=== PATIENT | female | born 1960 | race Caucasian/White ===

== ENCOUNTER 2019-07-11 04:25 | Observation (INO) | payer MEDICAID, SELFPAY ==
[2019-07-11] VITALS (8 sets, daily range): BP systolic 108–157; BP diastolic 55–88; PULSE 54–85; RESP 16–18; TEMP 36.4–36.6; O2SAT 96–98; BMI 38.1; BMI 37.1; BMI 37.2
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
--- NOTE | 2019-07-11 04:56 | EKG12_ITS ---
Test Reason : ALT LOC Blood Pressure : / mmHG Vent. Rate : 093 BPM Atrial Rate : 093 BPM P-R Int : 176 ms QRS Dur : 084 ms QT Int : 366 ms P-R-T Axes : 039 -14 057 degrees QTc Int : 455 ms Normal sinus rhythm Left ventricular hypertrophy with repolarization abnormality Abnormal ECG Confirmed by DONAVON BENOIT, YANIV ([id number]), order editor VAISHNAVI SRIVASTAVA ([id number]) on 07/13/2019 9:28:55 AM Referred By: CLARISSA Confirmed By:YANIV RAPHAEL MD
--- NOTE | 2019-07-11 05:00 | RAD_ITS ---
STUDY: X-RAY CHEST REASON FOR EXAM: Female, 58 years old. ALTERED LOC, MENTAL HEALTH, CONFUSION TECHNIQUE: Single AP portable view of the chest. COMPARISON: None. FINDINGS: The lungs are clear and expanded. There is no demonstrated pleural abnormality. Normal size heart. Normal mediastinum and devi. Normal visualized pulmonary arteries. There is atherosclerotic tortuosity of the aortic arch and descending thoracic aorta. Normal visualized thoracic spine. Normal visualized ribs, clavicles, and shoulders. There is a hiatal hernia measures 9 cm. RAD/Chest 1 View (Portable) IMPRESSION: Degenerative changes, as described above. No demonstrated acute cardiopulmonary process. There is a hiatal hernia measures 9 cm. Electronically Signed: Pavel Julian, at 6:06 EST Tel , Service support ,
[2019-07-11 05:42] LABS: Absolute Lymphocyte Count 1.09 X10^3/uL (0.83-4.51); Absolute Neutrophil Count 7.8 X10^3/uL (2.0-7.7); Basophil# 0.05 X10^3/uL; Basophil% 0.5 % (0-1); Eosinophil# 0.02 X10^3/uL; Eosinophils% 0.2 % (0-5); Hematocrit 44.1 % (37-47); Hemoglobin 13.9 g/dL (12.0-15.0); Lymphocyte # 1.09 X10^3/ul (4.0); Lymphocyte % 11.1 % (19-41); Mean Corp Hgb Conc 31.5 g/dL (32-36); Mean Corpuscular Hgb 26.4 pg (27.0-32.0); Mean Corpuscular Volume 83.8 fL (81-99); Mean Platelet Vol. 9.7 fl (6.2-12.0); Monocyte# 0.85 X10^3/uL; Monocyte% 8.7 % (0-10); NRBC Flagged by Analyzer 0 % (0-5); Neutrophil # 7.77 X10^3/uL (2.7-7.7); Neutrophil % 79.3 % (47-70); Platelet Count 303 K/mm3 (150-450); RBC Distribution Width CV 13.3 % (11.6-14.6); RBC Distribution Width SD 40.9 fl (35.1-43.9); Red Blood Count 5.26 M/mm3 (4.2-5.4); White Blood Count 9.8 K/mm3 (4.4-11.0)
[2019-07-11 06:01] LABS: AST(SGOT) 24 U/L (15-37); Alanine Aminotransfer ALT/SGPT 27 U/L (13-56); Albumin, Serum 3.9 g/dL (3.2-5.0); Alkaline Phosphatase 101 U/L (45-117); Anion Gap 8 (5-15); BUN 14 mg/dL (7-18); BUN/Creat Ratio 15.3 RATIO (10-20); Calcium,Total 9.4 mg/dL (8.5-10.1); Chloride 105 mmol/L (98-107); Creatinine, Serum 0.92 mg/dL (0.55-1.02); EST Glomerular Filtration Rate 66 mL/min (>60); Est Glom Filt Rate - Afr Amer 80 mL/min (>60); Estimated Creatinine Clearance 56.15 ml/min; Globulin 3.9 g/dL (2.2-4.2); Glucose 132 mg/dL (74-106); Potassium 3.4 mmol/L (3.5-5.1); Protein, Total 7.8 g/dL (6.4-8.2); Sodium Level 140 mmol/L (136-145)
[2019-07-11 06:10] LABS: Alcohol, Blood (Medical)-Serum < 3.0 mg/dL
[2019-07-11 06:20] LABS: Color, Urine Yellow (Yellow); Glucose, Dipstick Normal (Normal); Ketone-Dipstick 15 mg/dl (Negative); Leukocyte Esterase-Dipstick 500 /ul (Negative); Nitrite-Dipstick Negative (Negative); Occult Blood-Urine 10 /ul (Negative); Protein-Dipstick 30 mg/dl (Negative); Urine Bilirubin Dipstick Negative (Negative); Urine Clarity Sl. Cloudy (Clear); Urine Urobilinogen 1 mg/dl (Normal)
[2019-07-11 06:28] LABS: Bacteria 1+ /hpf (None Seen); Hyaline Cast 0-5 SEEN /lpf (0-5); Mucous, Urine 2+ /hpf (<or=2+); Red Blood Cells-Urine 0-5 SEEN /hpf (0-5); Squamous Epithelial Cells - UA 0-5 SEEN /hpf (5-10); White Blood Cells 10-25 SEEN /hpf (0-5)
--- NOTE | 2019-07-11 06:36 | ED.RN ---
april emergency contact. [facility] attempted to contact him at and left message in the middle of the night [phone] enoc carlos
[2019-07-11] MEDS: Ibuprofen 200 MG Tablet 400 MG PO (07:06)
[2019-07-11] MEDS: Ceftriaxone 1 GM/50 ML BAG IV (07:07)
[2019-07-11 07:09] LABS: Amphetamine Urine VISTA NEGATIVE (<1000 ng/mL); Barbiturate Urine VISTA NEGATIVE (< 200 ng/mL); Benzodiazepine Urine VISTA NEGATIVE (< 200 ng/mL); Cocaine Urine VISTA NEGATIVE (< 300 ng/mL); Ecstacy Urine VISTA NEGATIVE (< 500 ng/mL); Methadone Urine VISTA NEGATIVE (< 300 ng/mL); PCP Urine VISTA NEGATIVE (< 25 ng/mL); THC Urine VISTA NEGATIVE (< 50 ng/mL); Vista UDS pH Range 5
[2019-07-11] MEDS: Haloperidol Lactate 5 MG/ML Vial IM (09:25)
[2019-07-11 09:29] LABS: Ammonia < 10.0 umol/L (11-32)
--- NOTE | 2019-07-11 10:18 | NURSING ---
Unable to do complete assessment as pt was not fully cooperative upon arrival to unit and fell asleep shortly after. Her purse, shirt and shoes were not placed in pts room per suggestion from Willy, ER nurse, and agreement from this nurse since, pt is very fast at getting them on and pt had to be sedated in ER d/t her aggitation and attempting to leave. This nurse remains in room for 1:1 care for pt safety.
[2019-07-11] MEDS: cycloBENZAPRine HCl 10 MG Tablet 5 MG PO (12:21)
--- NOTE | 2019-07-11 12:23 | NURSING ---
Woke w/leg cramps. Declined flexeril at first but after ambulating did not help she agreed to take it. Also provided w/mack blaine and saltines per pt request.
--- NOTE | 2019-07-11 12:43 | NURSING ---
Pt sitting in recliner drinking mack blaine and crunching on ice.
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
--- NOTE | 2019-07-11 18:02 | NURSING ---
this nurse remains in the room with pt
[2019-07-12 04:55] VITALS: BP 119/73; PULSE 72; RESP 16; TEMP 36.6; O2SAT 97
[2019-07-12 05:38] LABS: Absolute Lymphocyte Count 1.67 X10^3/uL (0.83-4.51); Absolute Neutrophil Count 2.2 X10^3/uL (2.0-7.7); Basophil# 0.03 X10^3/uL; Basophil% 0.7 % (0-1); Eosinophil# 0.08 X10^3/uL; Eosinophils% 1.8 % (0-5); Hemoglobin 12.4 g/dL (12.0-15.0); Lymphocyte # 1.67 X10^3/ul (4.0); Lymphocyte % 37.2 % (19-41); Mean Corpuscular Hgb 26.2 pg (27.0-32.0); Mean Corpuscular Volume 84.4 fL (81-99); Mean Platelet Vol. 9.7 fl (6.2-12.0); Monocyte# 0.55 X10^3/uL; Monocyte% 12.2 % (0-10); NRBC Flagged by Analyzer 0 % (0-5); Neutrophil # 2.15 X10^3/uL (2.7-7.7); Neutrophil % 47.9 % (47-70); Platelet Count 239 K/mm3 (150-450); RBC Distribution Width CV 13.7 % (11.6-14.6); RBC Distribution Width SD 42.3 fl (35.1-43.9); Red Blood Count 4.74 M/mm3 (4.2-5.4); White Blood Count 4.5 K/mm3 (4.4-11.0)
[2019-07-12 05:59] LABS: Anion Gap 4 (5-15); BUN 8 mg/dL (7-18); BUN/Creat Ratio 11.2 RATIO (10-20); Calcium,Total 8.8 mg/dL (8.5-10.1); Chloride 109 mmol/L (98-107); Creatinine, Serum 0.72 mg/dL (0.55-1.02); EST Glomerular Filtration Rate 88 mL/min (>60); Est Glom Filt Rate - Afr Amer 107 mL/min (>60); Estimated Creatinine Clearance 71.75 ml/min; Glucose 87 mg/dL (74-106); Potassium 3.8 mmol/L (3.5-5.1); Sodium Level 142 mmol/L (136-145)
[2019-07-12 10:01] VITALS: BP 138/82; PULSE 74; RESP 14; TEMP 36.5; O2SAT 97
[2019-07-12] MEDS: Ceftriaxone 1 GM/50 ML BAG IV (10:37)
--- NOTE | 2019-07-12 11:20 | DCINST_ITS ---
- Discharge Diagnoses Current Active Problems: Current Active and Chronic Problems Delirium (Acute) Cystitis (Acute) You will use the following diet at home:: Regular Your food should be the consistency of: Regular Discharge Activity: Return to Normal Activity, May Not Drive - for 2-3 days for confusion Call your doctor if you observe: Fever of 101 or Higher, Change in Color, Inability to have a bowel movement, Using more than one pad per hour, Shortness of breath, Dizziness, Fainting spells, Swelling in the ankles, Chest pain, Prolonged hiccoughing, Increased palpitations (irregular heartbeat) Allergies/Adverse Reactions: Allergies Iodinated Contrast Media [CONTRASTS] Allergy (Verified 07/11/19 04:27) Unknown seafood Allergy (Uncoded 07/11/19 04:27) Unknown Medications to take at Discharge Cefadroxil [Duricef] 500 mg PO BID #10 cap 07/12/19 The following prescriptions were given: Cefadroxil [Duricef] 500 mg PO BID #10 cap Transmission Status: Received by [facility] Primary Care Physician: Gaudencio Manzanares III, MD [Primary Care Provider] - Please follow up with your Primary Care Physician in: in 2 weeks Test Results: Test results from this visit will be discussed in further detail at your follow- up appointment, if applicable.
[2019-07-12 11:21] VITALS: BP 123/78; PULSE 72; RESP 16; TEMP 36.6; O2SAT 98
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
--- NOTE | 2019-07-12 11:39 | CASEMGMT ---
Social Work Note Pt is listed as self-pay. SW reviewed PFS notes and pt completed medicaid application last week and submitted application to [employer]. Pt currently works, is self-employed and cleans homes. Pt also was provided HCAP application to complete. SW to remain available if any financial concerns arise. Marlin Caicedo DOCKETING SPECIALIST, [employer]
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
--- NOTE | 2019-07-13 22:01 | ED.RN ---
CONTACT INFO JOSHUA DING [phone]. MARA DING [phone]
== END 2019-07-12 14:12 | disposition home or self-care (01) ==
LOC: ED 06:57 → MS3 08:16
PROVIDERS: Admitting Provider Internal Medicine; Emergency Provider Emergency Medicine; Family Provider Family Medicine; PCP Family Medicine; Visit Provider Internal Medicine
DX: G93.40 Encephalopathy, unspecified (principal); N30.00 Acute cystitis without hematuria; E87.6 Hypokalemia
CPT/HCPCS: 36415; 70450; 71045; 80048; 80053; 80307; 80320; 81001; 82140; 85025; 87086; 87088; 93005; 96365; 96366; 96372; 99218; 99285; J7050; A4216; G0378; G0480

== ENCOUNTER → 2024-08-20 | Outpatient (CLI) | payer MEDICARE, SELFPAY ==
--- NOTE | 2024-08-20 10:10 | RAD_ITS ---
EXAM: XR Right Knee Complete, 4 or More Views CLINICAL INDICATION: TECHNIQUE: Four or more views of the right knee. COMPARISON: No relevant prior studies available. FINDINGS: BONES/JOINTS: Possible mild subluxation of the patella laterally. Correlation with point tenderness is recommended. No acute fracture. SOFT TISSUES: Unremarkable. RAD/Knee 4 or More Views IMPRESSION: Possible mild subluxation of the patella laterally. Correlation with point ten derness is recommended. Reading Location: [facility]
== END | disposition home or self-care (01) ==
LOC: MTRAD 10:07
PROVIDERS: PCP Family Medicine; Referring Provider Physician Assistant Surgical; Visit Provider Physician Assistant Surgical
DX: S89.90XA Unspecified injury of unspecified lower leg, initial encounter (principal)
CPT/HCPCS: 73564